=== PATIENT | female | born 1975 | race African-American/Black ===

== ENCOUNTER 2024-07-11 17:22 | Emergency (ER) | payer BC, SELFPAY ==
[2024-07-11 17:30] VITALS: BP 144/88
[2024-07-11 17:58] LABS: HCG, Urine Qualitative Screen Negative
[2024-07-11 18:03] LABS: Urine Albumin Trace (Neg - Trace); Urine Bilirubin Negative (Negative); Urine Character Clear (Clear); Urine Color Yellow; Urine Glucose Negative (Negative); Urine Ketone Negative (Negative); Urine Leukocyte 1+ (Negative); Urine Nitrite Negative (Negative); Urine Occult Blood Trace (Negative); Urine Urobilinogen Negative (Neg - 1+)
[2024-07-11 18:21] LABS: Urine Bacteria Many (Negative); Urine Mucus Many; Urine Red Blood Cell 0-2 /HPF (0-2); Urine Squamous Cell >30 /LPF (Few)
[2024-07-11 20:36] VITALS: BP 142/96
[2024-07-11] MEDS: MACROBID 100 MG PO (21:26)
[2024-07-11] MEDS: FLEXERIL 10 MG PO (21:32)
--- NOTE | 2024-07-11 23:22 | ED.MUSCINJ ---
Addendum entered and electronically signed by Sage Sumner PA-C 07/14/24 08:53:
On nitrofurantoin, UCx shows susceptibility
Original Note:
HPI-Injury
General
Chief Complaint: Musculo-Skeletal Complaint
Source: patient
Exam Limitations: none
Time Seen by Provider: 07/11/24 20:15
Nursing documentation reviewed up to this point in time: agreed with
History of Present Illness-Injury
Is this injury a work related problem?: No
Is pt an associate of [facility]?: No
Initial Injury comments:
Patient to ED with complaint of right scapula pain, left lateral hip pain, UTI symptoms. States she developed hip pain after workout at gym. She is does not recall hurting her shoulder/scapula. Brought self to ED for eval. N o fever/chills
Past History
Past History
ED Past Medical History: HTN
ED Past Surgical History: Orthopedic and Other
Social History
Tobacco: Non-smoker
Drug: None
Personal:
Living: with family
Employment: Employed
Family History
Family History: Hypertension
Review of Systems
Review of Systems
Allergies reviewed?: Yes
All Other Systems: ROS reviewed and negative except as documented in HPI and ROS
Constitutional: Reports no symptoms
ABD/GI: Reports no symptoms
: Reports dark urine (cloudy urine)
Musculoskeletal: Reports joint pain (left lateral hip, right scapula)
Skin: Reports no symptoms
Neurological: Reports no symptoms
Psychiatric: Reports no symptoms
Musculoskeletal Injury Exam
Musculoskeletal Injury Exam
Left Lateral Hip:
Pain with Movement?: Moderate
Tender to palpation?: Moderate
Soft tissue swelling?: None
External deformity and angulation?: None
Joint effusion?: None
Contusion?: None
Hematoma-local bleeding into tissue?: None
Strain- Sprain- Tear (Connective tissue injury)?: Moderate
Crepitus with movement?: No
Joint instability?: No
Malalignment/deformity?: No
Range of motion: Full
Distal skin color and temperature: normal-warm & good color
Capillary Refill: normal
Normal distal neurovascular exam?: Yes
RIght Scapula:
Pain with Movement?: Moderate
Tender to palpation?: Moderate
Soft tissue swelling?: None
External deformity and angulation?: None
Joint effusion?: None
Contusion?: None
Hematoma-local bleeding into tissue?: None
Crepitus with movement?: No
Joint instability?: No
Malalignment/deformity?: No
Range of motion: Limited
Distal skin color and temperature: normal-warm & good color
Capillary Refill: normal
Normal distal neurovascular exam?: Yes
Phy Exam
General Physical Exam
General Presentation: well appearing and no apparent distress
General age: appears stated age
General Skin: warm and dry
General Habitus: normal
General Mental: alert
Pulmonary Exam
Pulmonary Exam: no respiratory distress and chest non tender
Musculoskeletal Exam
Musculoskeletal Exam: no edema and neuro vasc intact
Skin Exam
Skin Exam: normal color, warm/dry and no rash
Psychiatric Exam
Psychiatric Exam: normal mood/affect
Injury Course
Orders/Labs/Results
Orders:
Orders
07/11/24 17:37
CR Hip - LT w/wo Pel 2-3 Vw* Urgent
Comment:
Reason For Exam: pain
Include a pelvis x-ray?: No
Shoulder, Right 2 Views [CR Shoulder - Right Min 2 View] Urgent
Comment:
Reason For Exam: pain
07/11/24 17:40
Test Result ONCE
07/11/24 17:46
HCG, Urine Qualitative Screen Urgent
Date Specimen was Collected: 07/11/24
Time Specimen was Collected: 17:40
Urinalysis Reflex To Culture Urgent
Date Specimen was Collected: 07/11/24
Time Specimen was Collected: 17:40
Urine Microscopic Reflex Cult Urgent
Urine Culture Urgent
ANITA Source: U
Specimen Description:
Date Specimen was Collected: 07/11/24
Time Specimen was Collected: 17:40
07/11/24 20:21
Scapula, Right Complete CR [CR Scapula - Right Complete *] Urgent
Comment:
Reason For Exam: pain
07/11/24 21:10
Nitrofurantoin Monohydrate [Macrobid] 100 mg PO NOW STA
07/11/24 21:32
Cyclobenzaprine HCl [Flexeril] 10 mg .ROUTE .STK-MED ONE
Cyclobenzaprine HCl [Flexeril] 10 mg PO NOW STA
Abnormal Lab Results
07/11/24
17:46
Ur Occult Blood Reflex Trace A
(Negative)
Leukocyte Esterase Rfl 1+ A
(Negative)
Urine Bacteria (Reflex) Many A
(Negative)
*Radiology
Radiology exam reviewed: radiology read reviewed
*Pulse Oximetry
Patient hypoxic: no
*Critical Care Note
Total Time (30-74mins, 75-104mins- exclusive of procedures): Not Applicable
ED Attending Note
-
Portions of this chart may have been created with voice recognition software.� Occasional wrong word or��sound alike� substitutions may have occurred due to the inherent limitations of voice recognition software.
Discharge Plan
Departure
Patient Disposition: Home (Routine Discharge)
Date of Disposition: 07/11/24
Time of Disposition: 21:10
Patient with high blood pressure during this ER visit?: No
Condition: Good
Covid-19: Not Applicable
Discharge Problem:
Acute hip pain, Pain, upper back
Instructions: Urinary tract infections in adults, Muscle and Bone Pain (DC), Ibuprofen, Using Cold for Pain
Prescriptions:
New
nitrofurantoin monohyd/m-cryst [Macrobid] 100 mg capsule
100 mg PO BID Qty: 10 0RF
ibuprofen 600 mg tablet
600 mg PO Q6H PRN (Reason: Pain) Qty: 20 0RF
cyclobenzaprine 10 mg tablet
10 mg PO TID PRN (Reason: muscle spasms) Qty: 12 0RF
hydrocodone-acetaminophen 5-325 mg tablet
1 tab PO Q4H PRN (Reason: Pain) Qty: 10 0RF
Referrals:
Simon Costa MD [Active] - (Follow up if your symptoms do not improve over the next week.)
Amanda Thompson, DO [Family Provider] -
Interventions
Interventions:
*Risk Screen - Suicide Last Done: 07/11/24 17:30
*General Assessment Last Done: 07/11/24 17:30
*Neglect/Abuse Screening Last Done: 07/11/24 17:30
ED- Fall Risk Assessment Last Done: 07/11/24 17:30
*ED COVID-19 Vaccine History Last Done: 07/11/24 17:30
*Nursing Disposition Last Done: 07/11/24 21:38
ED-Musculoskeletal Assessment Last Done: 07/11/24 20:36
Discharge Date and Time
Discharge Date/Time: 07/11/24 21:39
Print Language: GEORGIAN
== END 2024-07-11 21:39 | disposition home or self-care (01) ==
LOC: EMR 17:22
PROVIDERS: Emergency Medicine; EMERGENCY PHYSICIAN Emergency Medicine; FAMILY PHYSICIAN Internal Medicine
DX: M25.552 Pain in left hip (principal); M54.6 Pain in thoracic spine; I10 Essential (primary) hypertension; Z82.49 Family history of ischemic heart disease and other diseases of the circulatory system
CPT/HCPCS: 99283; 73010; 73030; 73502; 81003; 81015; 81025; 87086; 87088; 87186